=== PATIENT | male | born 1975 | race Caucasian/White ===

== ENCOUNTER 2021-07-13 12:57 | Emergency (ER) | payer OTHER ==
[2021-07-13] MEDS ORDERED: Lidocaine 1% 10 ML MDV INJECT ONE (13:48)
--- NOTE | 2021-07-13 13:51 | EDM.PDOC ---
ED HPI GENERAL MEDICAL PROBLEM - General Chief Complaint: Laceration Stated Complaint: RIGHT FOOT LACERATION Time Seen by Provider: 07/13/21 13:49 Source of Information: Reports: Patient History Limitations: Reports: No Limitations - History of Present Illness INITIAL COMMENTS - FREE TEXT/NARRATIVE: Patient is 45-year-old male no medical problems with complaint of right foot in jury. Patient was at work in his right foot was run over by a forklift. Patient reports immediate pain. Injury occurred just prior to arrival. Patient reports pain is mild nail as he does experience numbness and tingling in the toe. Otherwise, he denies any other injury. No interventions performed prior to arrival. Bleeding controlled with direct pressure. Right Foot Pain Score (Numeric/FACES): 5 - Related Data Allergies Allergy/AdvReac Type Severity Reaction Status Date / Time No Known Allergies Allergy Verified 07/13/21 13:15 Home Meds: Home Meds Acetaminophen/oxyCODONE [Percocet 325-5 MG] 1 each PO Q6H PRN #10 tab 07/13/21 [Rx] cephALEXin [Keflex] 500 mg PO Q8H #21 cap 07/13/21 [Rx] Past Medical History - Past Health History Medical/Surgical History: Denies Medical/Surgical History Social & Family History - Tobacco Use Tobacco Use Status *Q: Never Tobacco User Second Hand Smoke Exposure: No - Recreational Drug Use Recreational Drug Use: No ED ROS GENERAL - Review of Systems Review Of Systems: Comprehensive ROS is negative, except as noted in HPI. ED EXAM, SKIN/RASH Exam: See Below Text/Narrative:: I have reviewed the triage vital signs Const: Well nourished, well developed, appears stated age Eyes: no conjunctival injection HENT: No signs of trauma or swelling, Neck supple without meningismus CV: Regular Rate Rhythm, Warm, well-perfused extremities RESP: Unlabored respiratory effort MSK: Demonstrates linear laceration to the lateral aspect of the dorsum of his right foot. Laceration is approximately 3 to 4 cm in length. No active bleeding. Has some ecchymosis of the right pinky toe. No deformity or swelling of the ankle. No gross deformities appreciated Skin: Warm, dry. No rashes Neuro: Alert, senior controls engineer II-XII grossly intact. Sensation and motor function of extremities grossly intact. Psych: Appropriate mood and affect. ED SKIN PROCEDURES - Laceration/Wound Repair Right Dorsal Foot Appearance: Linear, Clean Distal NVT: Other (Some mild numbness but appropriate capillary refill. To the pinky toe. Limited extension of the toe.) Anesthetic Type: Local Local Anesthesia - Lidocaine (Xylocaine): 1% Plain Local Anesthetic Volume: 5cc Skin Prep: Providone-Iodine (Betadine) Saline Irrigation (cc's): 500 Exploration/Debridement/Repair: Wound Explored, No Foreign Material Found Closed with: Sutures Lac/Wound length In cm: 4.5 Suture Size: 3-0 # of Sutures: 5 Suture Type: Nylon Suture Size: 4-0 # of Sutures: 4 Drain Placement: No Sterile Dressing Applied: Nurse Tetanus Status Addressed: Yes Complications: No Course - Vital Signs Last Recorded V/S: Last Vital Signs Temp 36.6 C 07/13/21 13:03 Pulse 90 07/13/21 13:03 Resp 16 07/13/21 13:03 BP 157/90 H 07/13/21 13:03 Pulse Ox 96 07/13/21 13:03 - Orders/Labs/Meds Orders: Active Orders 24 hr Category Date Time Status DME for Discharge [COMM] Stat Oth 07/13/21 14:59 Ordered Meds: Medications Discontinued Medications Generic Name Dose Route Start Last Admin Trade Name Freq PRN Reason Stop Dose Admin Diphtheria/Tetanus/Acell Pertussis 0.5 ml 07/13/21 14:46 Diphtheria,Pertussis(Acell),Tetanus Vaccine 0.5 Ml Syringe IM 07/13/21 14:47 .ONCE ONE Cefazolin Sodium 2 gm/ Sodium 50 mls @ 100 mls/hr 07/13/21 13:58 Chloride IV 07/13/21 14:27 ONETIME ONE Cefazolin Sodium/Dextrose Confirm 07/13/21 14:05 07/13/21 14:18 Ancef Administered 07/13/21 14:06 Not Given Dose 50 mls @ as directed .ROUTE .STK-MED ONE Cefazolin Sodium/Dextrose 2 gm 50 mls @ 100 mls/hr 07/13/21 14:10 07/13/21 14:16 / Premix IV 07/13/21 14:39 100 mls/hr ONETIME ONE Administration Lidocaine HCl 10 ml 07/13/21 13:48 07/13/21 13:57 Lidocaine 1% 10 Ml Mdv INJECT 07/13/21 13:49 10 ml ONETIME ONE Administration Departure - Departure Time of Disposition: 14:52 Disposition: Home, Self-Care 01 Clinical Impression: Laceration of right foot, Fracture of 5th metatarsal - Discharge Information Prescriptions: cephALEXin [Keflex] 500 mg PO Q8H #21 cap Acetaminophen/oxyCODONE [Percocet 325-5 MG] 1 each PO Q6H PRN #10 tab PRN Reason: Pain Instructions: Laceration Care, Adult, [id number] Referrals: PCP,None [Primary Care Provider] - Forms: ED Department Discharge Additional Instructions: Monitor for signs of infection such as increased swelling or pain after 48 hours. Take antibiotics as directed. Avoid strenuous activity. Minimize weightbearing for the first several days to allow for sutures to heal. Follow- up with podiatry in the next 1 week. Sepsis Event Note (ED) - Evaluation Sepsis Screening Result: No Definite Risk - Focused Exam Vital Signs: Vital Signs Temp Pulse Resp BP Pulse Ox 07/13/21 13:03 36.6 C 90 16 157/90 H 96 - My Orders Last 24 Hours: My Active Orders 07/13/21 14:59 DME for Discharge [COMM] Stat - Assessment/Plan Last 24 Hours: My Active Orders 07/13/21 14:59 DME for Discharge [COMM] Stat Assessment:: Patient is a 45-year-old male presenting to the emergency room with a complaint of right foot injury. Patient demonstrates laceration with underlying fracture of the proximal fifth phalanx of his foot. Copious irrigation was performed at bedside. Patient was given 1 dose of Ancef in the emergency room and also prescription for prophylactic antibiotics. Tetanus was updated. At this point, I did explain the possibility of tendon injury to the patient and urged quick follow-up with podiatry in the next couple of days. We discussed risks of infection as well. This wound was approximated more loosely than normal given risk of infection. Patient agrees with this plan will be discharged in stable condition.
[2021-07-13] MEDS ORDERED: ceFAZolin 2 GM in Sodium Chloride 0.9% 50 ML IV ONE (13:58)
[2021-07-13] MEDS ORDERED: ceFAZolin 2 GM in Premix Bag 1 BAG IV ONE (14:10)
[2021-07-13] MEDS ORDERED: Diphtheria,Pertussis(Acell),Tetanus Vaccine 0.5 ML Syringe IM ONE (14:46)
--- NOTE | 2021-07-13 14:52 | CR ---
Right foot: 3 views of the right foot were obtained. Comparison: No prior foot study is available. Fracture is seen within the distal aspect of the proximal phalanx of the fifth toe. Slight displacement is seen. Soft tissue swelling is noted. No additional fracture or other abnormality is appreciated. Impression: 1. Slightly displaced fracture involving the distal aspect of the proximal phalanx of the right fifth toe. 2. Soft tissue swelling. Diagnostic code #3
== END 2021-07-13 15:10 | disposition home or self-care (01) ==
LOC: JD.ED 12:57
DX: S92.351A Displaced fracture of fifth metatarsal bone, right foot, initial encounter for closed fracture (principal); S91.311A Laceration without foreign body, right foot, initial encounter; W23.0XXA Caught, crushed, jammed, or pinched between moving objects, initial encounter
CPT/HCPCS: 12002; 73630; 96365; 99283; J0690

== ENCOUNTER 2024-11-06 12:30 | Emergency (ER) | payer BC, OTHER ==
[2024-11-06 13:02] LABS: BASOPHILS ABSOLUTE AUTO 0.1 K/mm3 (0.0-0.2); BASOPHILS PERCENT AUTO 0.6 % (0.0-1.0); EOSINOPHILS ABSOLUTE AUTO 0.6 K/mm3 (0.0-0.4); EOSINOPHILS PERCENT AUTO 4.7 % (0.0-6.0); HEMATOCRIT 46.3 % (42.0-52.0); HEMOGLOBIN 15.8 gm/dl (14.0-18.0); IMMATURE GRAN PERCENT AUTO 0.8 % (0.0-0.4); LYMPHOCYTES ABSOLUTE AUTO 3.9 K/mm3 (1.0-4.8); LYMPHOCYTES PERCENT AUTO 31.6 % (24.0-44.0); MEAN CORPUSCULAR HEMOGLOBIN 29.2 pg (28.0-32.0); MEAN CORPUSCULAR HGB CONC 34.1 g/dl (32.0-36.0); MEAN CORPUSCULAR VOLUME 85.4 fl (83.0-99.0); MEAN PLATELET VOLUME 9.5 fl (9.4-12.4); MONOCYTES ABSOLUTE AUTO 1.2 K/mm3 (0.0-0.8); MONOCYTES PERCENT AUTO 9.4 % (0.0-8.0); NEUTROPHILS ABSOLUTE AUTO 6.6 K/mm3 (1.8-7.7); NEUTROPHILS PERCENT AUTO 52.9 % (41.0-71.0); PLATELET COUNT,PLT 242 K/mm3 (150-400); RED BLOOD CELL COUNT 5.42 M/mm3 (4.52-5.90); WHITE BLOOD CELL COUNT,WBC 12.39 K/mm3 (3.9-11.3)
[2024-11-06] MEDS: Sodium Chloride 0.9% 1,000 ML IV ONE ×2 (13:07→13:44)
[2024-11-06] MEDS: Sodium Chloride 0.9% 10 ML Syringe FLUSH PRN (13:08)
[2024-11-06 13:28] LABS: A/G RATIO 1.2 (1-2); ALBUMIN 3.9 g/dl (3.4-5.0); ANION GAP 17.7 (5-15); BILIRUBIN TOTAL 0.6 mg/dL (0.2-1.0); BUN/CREATININE RATIO 8.3 (14-18); CREATININE 1.2 mg/dL (0.7-1.3); POTASSIUM,K 3.7 mEq/L (3.5-5.1); PROTEIN TOTAL,TP 7.3 g/dl (6.4-8.2)
[2024-11-06 15:13] LABS: APPEARANCE,URINE CLEAR (Clear); BILIRUBIN,URINE NEGATIVE (Negative); COLOR,URINE YELLOW (Yellow); GLUCOSE,URINE NEGATIVE (Negative); KETONES,URINE NEGATIVE (Negative); LEUKOCYTE ESTERASE,URINE NEGATIVE (Negative); NITRITE,URINE NEGATIVE (Negative); OCCULT BLOOD,URINE TRACE-LYSED (Negative); PROTEIN,URINE 2+ (Negative); UROBILINOGEN,URINE 0.2 (0.2-1.0)
[2024-11-06 15:33] LABS: BARBITURATE SCREEN,URINE NEGATIVE (CUTOFF=200); BENZODIAZEPINES SCREEN,URINE NEGATIVE (CUTOFF=150); BUPRENORPHINE SCREEN,URINE NEGATIVE (CUTOFF=10); METHADONE SCREEN, URINE NEGATIVE (CUT0FF=200); METHAMPHETAMINES SCREEN, URINE NEGATIVE (CUTOFF=500); OXYCODONE SCREEN,URINE NEGATIVE (CUT0FF=100); THC SCREEN,URINE 20 NG/ML NEGATIVE (CUTOFF=50)
[2024-11-06 15:36] LABS: AMPHETAMINES SCREEN, URINE NEGATIVE (CUTOFF=500)
[2024-11-06 15:50] LABS: BACTERIA,URINE MODERATE /hpf (FEW); MUCUS,URINE FEW /hpf (FEW); RBC,URINE 0-5 /hpf (0-5); SQUAMOUS EPITHELIAL CELLS,UR 0-5 /hpf (0-5); WBC,URINE 0-5 /hpf (0-5)
== END 2024-11-06 16:11 | disposition home or self-care (01) ==
LOC: JD.ED 12:30
DX: R56.9 Unspecified convulsions (principal); F17.210 Nicotine dependence, cigarettes, uncomplicated
CPT/HCPCS: 36415; 70450; 70450-26; 80053; 80306; 81001; 83605; 84484; 85025; 93005; 93010; 96360; 96361; 99284; 99285-25; J7030